=== PATIENT | male | born 1990 | race Caucasian/White ===

== ENCOUNTER 2019-06-10 18:26 | Emergency (ER) | payer OTHER ==
[2019-06-10] MEDS ORDERED: LIDOCAINE 1%/EPINEPHRINE INJ 20 ML VIAL ONE (18:42)
--- NOTE | 2019-06-10 18:50 | ER Document Report ---
ED General - General Chief Complaint: Laceration Stated Complaint: LACERATION Time Seen by Provider: 06/10/19 18:33 Primary Care Provider: DAYANNA TODD MD [ACTIVE PROVISIONAL STAFF] - Follow up as needed Mode of Arrival: Ambulatory Information source: Patient - [facility] Onset: Just prior to arrival Onset/Duration: Sudden Quality of pain: Sharp Severity: Moderate Pain Level: 3 Associated symptoms: Other - bleeding, numbness of fingers in 1-3 on right, decreased movement of fingers 1-3 on righit Exacerbated by: Denies Relieved by: Denies Similar symptoms previously: No Recently seen / treated by doctor: No Notes: 29 year old male with no significant PMH here for evaluation after cutting his right wrist by 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 The patient made a lateral incision down his wrist by accident when trying to cut a part for his Jeep. The patient held pressure on the area and came to the ER. The patient says he has numbness in fingers 1-3 on the right and he also has trouble flexing fingers 1-3 on the right. - Related Data Allergies/Adverse Reactions: No Known Allergies Allergy (Verified 06/10/19 18:59) Past Medical History - General Information source: Patient - Social History Smoking Status: Never Smoker Frequency of alcohol use: Occasional Drug Abuse: None Lives with: Alone Family History: Reviewed & Not Pertinent Patient has suicidal ideation: No Patient has homicidal ideation: No Review of Systems - Review of Systems Constitutional: No symptoms reported EENT: No symptoms reported Cardiovascular: No symptoms reported Respiratory: No symptoms reported Gastrointestinal: No symptoms reported Genitourinary: No symptoms reported Male Genitourinary: No symptoms reported Musculoskeletal: Other - trouble flexing digits 1-3 on right completely Skin: Other - laceration on wrist which goes down to his hand Hematologic/Lymphatic: No symptoms reported Neurological/Psychological: Numbness - in fingers 1-3 on right -: Yes All other systems reviewed and negative Physical Exam - Vital signs Vitals: Temp Pulse Resp BP Pulse Ox 97.7 F 67 16 119/65 97 06/10/19 20:20 06/10/19 20:20 06/10/19 20:20 06/10/19 20:20 06/10/19 20:20 - Notes Notes: GENERAL: Well-appearing, well-nourished and in no acute distress. HEAD: Atraumatic, normocephalic. EYES: Pupils equal round and reactive to light, extraocular movements intact, sclera anicteric, conjunctiva are normal. ENT: TMs normal, nares patent, oropharynx clear without exudates. Moist mucous membranes. NECK: Normal range of motion, supple without lymphadenopathy or JVD. LUNGS: Breath sounds clear to auscultation bilaterally and equal. No wheezes rales or rhonchi. HEART: Regular rate and rhythm without murmurs, rubs or gallops. ABDOMEN: Soft, nontender, normoactive bowel sounds. No guarding, no rebound. No masses appreciated. EXTREMITIES: Normal range of motion, no pitting or edema. No clubbing or cyanosis. Patient is unable to completely flex fingers 1-3 on the right but he can flex them some. Patient has some mild trouble completely extending his thumb on the right. 2+ radial pulses. NEUROLOGICAL: Cranial nerves II through XII grossly intact. Normal speech, normal gait. Numbness in fingers 1-3 on right but patient can move his fingers in all directions. PSYCH: Normal mood, normal affect. SKIN: Linear deep laceration on garcia side of wrist in the middle of the wrist which goes down to the thenar eminence. No obvious tender involvement but the muscle body of the thenar region seems to be involved. Warm, Dry, normal turgor, no rashes or lesions noted. Course - Re-evaluation Re-evalutation: 06/10/19 20:54 The patient accidentally cut his right wrist with a box press operator. The laceration involves some muscle body which is likely the reason he cannot completely flex his 1-3 fingers on the right but I see no obvious tendon involvement. The patient likely has some digital nerve involvement since he says his 1-3 fingers are numb. Although the patient likely has a component of shock causing some of his symptoms (he was pale and sweaty and anxious on arrival) he should nonetheless follow up with a Hand Surgeon tomorrow of the next day for evaluation. The patient understood the importance of this and his Command was notified. Dr. Todd of Orthopedics was consulted and he will see the patient tomorrow if the patient's Base cannot get him in with a Hand Surgeon in the next 1-2 days. Will DC patient on prophylactic Keflex. Patient's tetanus is up to date. - Vital Signs Vital signs: Temp Pulse Resp BP Pulse Ox 97.7 F 67 16 119/65 97 06/10/19 20:20 06/10/19 20:20 06/10/19 20:20 06/10/19 20:20 06/10/19 20:20 Procedures - Immobilization Right Wrist Pre-Proc Neuro Vasc Exam: Normal Immobilizer type: Cock-up Performed by: RN, PCT Post-Proc Neuro Vasc Exam: Normal Alignment checked and good: Yes - Laceration/Wound Repair Right Mid- Wrist Wound length (cm): 6 Wound's Depth, Shape: Into muscle, Linear Laceration pre-procedure: Sterile drapes applied, Shur-Clens applied Anesthetic type: 1% Lidocaine w/epi Volume Anesthetic (mLs): 7 Wound explored: Clean Irrigated w/ Saline (mLs): 1,000 Wound Repaired With: Sutures Suture Size/Type: 5:0, Prolene Number of Sutures: 10 Layer Closure?: No Post-procedure wound care: Splint applied Post-procedure NV exam normal: Yes Complications: No Discharge - Discharge Clinical Impression: Laceration of wrist with complication Qualifiers: Encounter type: initial encounter Laterality: right Qualified Code(s): S61.511A - Laceration without foreign body of right wrist, initial encounter Condition: Stable Disposition: HOME, SELF-CARE Instructions: Antibiotic Ointment Protection ([facility]), Laceration Care ([facility]) Additional Instructions: Follow up with your [employer] and see a medical provider from base tomorrow. You should be evaluated by a Hand Surgeon either tomorrow or the following day at the latest. You have a deep laceration of your wrist which may involve your digital nerves and may involve some flexer tendons. Take Keflex as prescribed for prophylaxis. Keep your wound covered in antibiotic ointment. Prescriptions: Cephalexin [Keflex] 500 mg PO BID 7 Days #14 capsule Referrals: DAYANNA TODD MD [ACTIVE PROVISIONAL STAFF] - Follow up as needed
[2019-06-10] MEDS ORDERED: CEPHALEXIN 500 MG CAPSULE PO ONE (21:31)
[2019-06-10] MEDS ORDERED: HYDROCODONE/ACETAMINOPHEN 5-325 MG (6 TAB/ER DISP) PO PRN (21:31)
[2019-06-10 21:42] VITALS: BP 123/68
== END 2019-06-10 21:42 | disposition home or self-care (01) ==
LOC: ER 18:26
PROC: 0HQFXZZ Repair Right Hand Skin, External Approach (ICD-10-PCS; principal; 2019-06-10)
DX: S61.511A Laceration without foreign body of right wrist, initial encounter (principal); W26.0XXA Contact with knife, initial encounter
CPT/HCPCS: 99282; 12002; J3490